=== PATIENT | female | born 1995 | race American Indian/Alaskan Native ===

== ENCOUNTER 2018-03-06 10:15 | Inpatient (IN) | payer SELFPAY ==
[2018-03-06] MEDS ORDERED: MOTRIN PO ONE (11:50)
[2018-03-06] MEDS ORDERED: TYLENOL #3 PO ONE (11:50)
[2018-03-06] MEDS ORDERED: TORADOL IM ONE (11:53)
[2018-03-06] MEDS ORDERED: ZOFRAN ODT PO ONE (11:54)
--- NOTE | 2018-03-06 12:20 | Emergency Department Report ---
ED Female HPI - General Chief complaint: Urogenital-Female Stated complaint: BAD MENTSTRAL CRAMPS Time Seen by Provider: 03/06/18 11:28 Source: patient, EMS Mode of arrival: Ambulatory Limitations: No Limitations - History of Present Illness Initial comments: This is a 22-year-old female nontoxic, well nourished in appearance, no acute signs of distress presents to the ED with c/o of nausea and pelvic pain x2 days. Patient stated that she has a history of abnormal heavy menstrual cycles with severe pain. Patient stated that she takes medication from her PCP but is not relieved the pain. Patient denies any vomiting. Patient stated that she becomes nauseated due to the pain. Patient describes pelvic pain as cramping and aching with level of 3/10 diffuse. Patient denies chest pain, short of breath, fever, chills, headache, stiff neck, numbness or tingling. Patient denies any diarrhea or constipation. Patient denies any vaginal discharge. Patient denies any recent travels. Patient denies any allergies or significant PMH. MD Complaint: vaginal bleeding, pelvic pain -: days(s) (2) Radiation: non-radiating Severity: mild Severity scale (0 -10): 8 Quality: cramping Consistency: constant Improves with: none Worsens with: none Are you Now?: No Last Menstrual Period: 03/06/18 EDC: 12/11/18 Associated Symptoms: vaginal bleeding. denies: vaginal discharge, abdominal pain, nausea/vomiting, fever/chills, headaches, loss of appetite, dysuria, hematuria, rash, seizure, shortness of breath, syncope, weakness - Related Data Allergies Allergy/AdvReac Type Severity Reaction Status Date / Time No Known Allergies Allergy Unverified 03/06/18 10:25 ED Review of Systems ROS: Stated complaint: BAD MENTSTRAL CRAMPS Other details as noted in HPI Constitutional: denies: chills, fever Eyes: denies: eye pain, eye discharge, vision change ENT: denies: ear pain, throat pain Respiratory: denies: cough, shortness of breath, wheezing Cardiovascular: denies: chest pain, palpitations Endocrine: no symptoms reported Gastrointestinal: denies: abdominal pain, nausea, diarrhea Genitourinary: abnormal menses. denies: urgency, dysuria, discharge Musculoskeletal: denies: back pain, joint swelling, arthralgia Skin: denies: rash, lesions Neurological: denies: headache, weakness, paresthesias Psychiatric: denies: anxiety, depression Hematological/Lymphatic: denies: easy bleeding, easy bruising ED Past Medical Hx - Past Medical History Previous Medical History?: Yes Additional medical history: Painful menstrual cramps - Surgical History Past Surgical History?: Yes Hx Appendectomy: Yes - Social History Smoking Status: Current Every Day Smoker Substance Use Type: Marijuana ED Physical Exam - General Limitations: No Limitations General appearance: alert, in no apparent distress - Head Head exam: Present: atraumatic, normocephalic - Eye Eye exam: Present: normal appearance Pupils: Present: normal accommodation - ENT ENT exam: Present: normal exam, mucous membranes moist - Neck Neck exam: Present: normal inspection, full ROM. Absent: tenderness, meningismus - Respiratory Respiratory exam: Present: normal lung sounds bilaterally. Absent: respiratory distress, wheezes, rales, rhonchi, stridor, chest wall tenderness, accessory muscle use, decreased breath sounds, prolonged expiratory - Cardiovascular Cardiovascular Exam: Present: regular rate, normal rhythm, normal heart sounds. Absent: bradycardia, tachycardia, irregular rhythm, systolic murmur, diastolic murmur, rubs, gallop - GI/Abdominal GI/Abdominal exam: Present: soft, tenderness (pelvic bilateral), normal bowel sounds. Absent: distended, guarding, rebound, rigid, diminished bowel sounds - Expanded GI/Abdominal Exam Expanded GI/Abdominal exam: Absent: psoas sign, obturator sign, heel tap sign, Combs's sign, Rovsing's sign, tenderness at Mcburney's Point, ascites - Rectal Rectal exam: Present: deferred - External exam: Present: normal external exam, other (chaperoned Hemalatha present during exam). Absent: erythema, swelling, lesions, lacerations, ecchymosis, bleeding Speculum exam: Present: normal speculum exam, vaginal bleeding, other ( chaperoned Hemalatha present during exam). Absent: erythema, vaginal discharge, cervical discharge, foreign body, tissue, laceration Bi-manual exam: Present: cervical motion tendernes, adnexal tenderness, other ( chaperoned Hemalatha present during exam). Absent: adnexal mass, uterine enlargement , uterine tenderness - Extremities Exam Extremities exam: Present: normal inspection, full ROM, normal capillary refill. Absent: tenderness - Back Exam Back exam: Present: normal inspection, full ROM. Absent: tenderness, CVA tenderness (R), CVA tenderness (L), muscle spasm, paraspinal tenderness, vertebral tenderness, rash noted - Neurological Exam Neurological exam: Present: alert, oriented X3, normal gait - Psychiatric Psychiatric exam: Present: normal affect, normal mood - Skin Skin exam: Present: warm, dry, intact, normal color. Absent: rash ED Course Vital Signs 03/06/18 03/06/18 03/06/18 10:25 12:05 16:00 Temperature 97.6 F 98.4 F Pulse Rate 76 75 Respiratory 18 18 16 Rate Blood Pressure 144/55 Blood Pressure 107/63 [Left] O2 Sat by Pulse 100 99 Oximetry - Reevaluation(s) Reevaluation #1: 03/06/18 12:47 Patient is speaking in full sentences with no signs of distress noted. - Consultations Consultation #1: 03/06/18 16:14 Patient has been consulted with Doni Kaba about patient history, physical exam , and labs/US report and examined patient and stated due more labs, give patient gentamicin and clindamycin and have [facility] consult. Consultation #2: 03/06/18 17:41 Patient has been consulted with Dillon Kyle (my-mother's helper) about patient history, physical exam, and labs/US report and stated to admit patient to mother baby unit and she will consult. ED Medical Decision Making - Lab Data Result diagrams: 03/06/18 13:03 03/06/18 13:03 - Medical Decision Making This is a 22-year-old female that presents with dysmenorrhea with possible PID/ tubal ovarian abscess. Patient is stable and was examined by me. Lab obtained with elevated WBCs. Wet prep obtaiend. G/C pending. Lactic acid 1.9. Blood cultures obtained. Patient received 1 L of normal saline, gentamicin and clindamycin IV. Patient was discussed with Dr. Rodríguez and agrees to the ED plan of care. Patient is admitted to [facility]. At time of admission, the patient does not seem toxic or ill in appearance. No acute signs of distress noted. Patient agrees to admission treatment plan of care. No further questions noted by the patient. Critical care attestation.: If time is entered above; I have spent that time in minutes in the direct care of this critically ill patient, excluding procedure time. ED Disposition Clinical Impression: Pelvic inflammatory disease, Dysmenorrhea, Adnexal tenderness Disposition: OP ADMIT IP TO THIS HOSP Is pt being admited?: Yes Condition: Stable Referrals: PRIMARY CARE, [Primary Care Provider] - 3-5 Days
[2018-03-06 12:40] LABS: Bacteria,Urine 1+ /HPF (Negative); Bilirubin,Urine NEG (Negative); Blood,Urine LG (Negative); Color,Urine Yellow (Yellow); Mucus,Urine FEW /HPF; Urobilinogen,Urine < 2.0 mg/dL (<2.0)
[2018-03-06 13:20] LABS: Hematocrit 39.5 % (30.3-42.9); Hemoglobin 12.9 gm/dl (10.1-14.3); Mean Corpuscular HGB Conc 33 % (30-34); Mean Corpuscular Hemoglobin 32 pg (28-32); Mean Corpuscular Volume 97 fl (79-97); Platelet Count 183 K/mm3 (140-440); Red Blood Count 4.06 M/mm3 (3.65-5.03)
[2018-03-06 13:38] LABS: BUN/Creatinine Ratio 12; Blood Urea Nitrogen 7 mg/dL (7-17); Calcium 9.1 mg/dL (8.4-10.2); Hemolysis Index 42
[2018-03-06 14:01] LABS: Basophils % (Manual) 0 % (0.0-1.8); Eosinophils % (Manual) 0 % (0.0-4.3); Total Cells Counted 100
[2018-03-06 14:02] LABS: Anisocytosis 1+; Platelet Estimate Cons
--- NOTE | 2018-03-06 15:59 | Ultrasound Report ---
ULTRASOUND PELVIS COMPLETE - TRANSABDOMINAL AND TRANSVAGINAL: INDICATION: Pelvic cramping with vaginal bleeding. COMPARISON: None similar at this institution. FINDINGS: Transabdominal and transvaginal pelvic sonography performed in this patient with LMP of 03/05/2018 demonstrates a 6.6 x 3.8 x 4.6 cm anteverted uterus. Echogenic endometrial stripe thickness 3 mm toward the fundus, endovaginal image 8. Closed cervix. Small pelvic free fluid. A tubular fluid-filled 5.3 x 2.2 x 2.7 cm structure with diffuse low-level intrinsic echoes noted in the right adnexa as on endovaginal image 32, amongst others. An adjacent 3.5 x 2.2 x 2.2 cm right ovary appears physiologic with a 1.4 cm intrinsic complex area/possible ruptured follicle as on endovaginal images 20-22. Unremarkable 2.9 x 1.9 x 3.2 cm left ovary as well. CONCLUSION: Complex right adnexal tubular fluid collection/possible hydrosalpinx. PID/tubo-ovarian abscess may also be correlated for clinically in an appropriate setting. Otherwise unremarkable exam. Thank you for the opportunity to participate in this patient's care.
[2018-03-06] MEDS ORDERED: ZITHROMAX PO ONE (16:07)
[2018-03-06] MEDS ORDERED: NACL 0.9% 1000 ML 1,000 ML IV ONE (16:10)
[2018-03-06] MEDS ORDERED: CLEOCIN 900 MG/50 mL 900 MG/50 ML BAG IV ONE (16:12)
[2018-03-06] MEDS ORDERED: GARAMYCIN/NS 120MG/100ML 120 MG/100 ML BAG IV ONE (16:13)
[2018-03-06] MEDS ORDERED: ROCEPHIN/NS 1 GM/50 ML 1 GM/50 ML BAG IV ONE (17:30)
--- NOTE | 2018-03-06 17:30 | Ultrasound Report ---
FINAL REPORT EXAM: US TRANSVAGINAL HISTORY: pelvic pain / repeat for ovarian torsion per er TECHNIQUE: Ultrasound transvaginal with pulsed and color Doppler evaluation PRIORS: None. FINDINGS: Uterus demonstrates normal size and echogenicity further described on today's earlier ultrasound The right ovary is 3.84 by 2.23 x 2.48 centimeters. Small follicular cysts are seen within the ovary. At the right adnexa there is a larger more complex appearing fluid collection with thickened quiñonez measuring approximately 5.2 x 2.7 centimeters as noted on the prior ultrasound. On Doppler evaluation of the right ovary there is normal vascular flow and waveform. The left ovary is 2.57 x 1.60 x 2.62 centimeters. There are few small follicular cyst noted. There is normal vascular flow waveform on pulsed and color Doppler evaluation IMPRESSION: Complex fluid collection at the right adnexa as noted on the prior exam. May reflect complex cyst however tubo-ovarian abscess/PID is a consideration No evidence for ovarian torsion at this time.
[2018-03-06] MEDS ORDERED: FLAGYL PO ONE (17:45)
[2018-03-06 18:16] VITALS: BP 104/59
[2018-03-06] MEDS ORDERED: TYLENOL PO PRN (19:39)
[2018-03-06] MEDS ORDERED: MOTRIN PO PRN (19:39)
[2018-03-06] MEDS ORDERED: ZOFRAN IV PRN (19:39)
[2018-03-06] MEDS ORDERED: SODIUM CHLORIDE FLUSH SYRINGE 10 ML IV PRN (19:39)
[2018-03-06] MEDS ORDERED: ALUM-MAG HYDROX-SIMETH 200-200-20MG/5ML PO PRN (19:39)
[2018-03-06] MEDS ORDERED: NORCO 5/325 PO PRN (19:39)
[2018-03-06] MEDS ORDERED: FLAGYL ONE (19:55)
[2018-03-06] MEDS ORDERED: LEVAQUIN 500MG/100ML 500 MG/100 ML BAG IV SCH (20:30)
--- NOTE | 2018-03-06 21:23 | Event Note ---
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 ORDERS WERE PLACED WITH ANTICIPATION OF PT ARRIVING TO THE FLOW AT WHICH POINT MY EVALUATION WOULD HAVE BEEN DONE SHE WAS STABLE AND HAD BEEN EXAMINED BY ER PROVIDER.
[2018-03-07] MEDS ORDERED: FLAGYL 500 MG/100 ML 500 MG/100 ML BAG IV SCH
== END 2018-03-06 20:00 | disposition left against medical advice (07) | DRG 869 ==
LOC: ED 10:15 → OB 17:37
PROVIDERS: ADMIT Obstetrics & Gynecology; ATTEND Obstetrics & Gynecology
DX: A59.9 Trichomoniasis, unspecified (principal); N73.9 Female pelvic inflammatory disease, unspecified; N76.0 Acute vaginitis; N94.6 Dysmenorrhea, unspecified; F17.200 Nicotine dependence, unspecified, uncomplicated; F12.90 Cannabis use, unspecified, uncomplicated; Z90.49 Acquired absence of other specified parts of digestive tract
CPT/HCPCS: 36415; 76830; 76856; 80048; 81001; 82140; 84703; 85007; 85025; 87040; 87086; 87210; 87591; 96365; 96372; J0696; J1580; J1885; J1956; J7030; Q0162

== ENCOUNTER 2020-06-06 03:35 | Emergency (ER) | payer SELFPAY ==
[2020-06-06 04:50] VITALS: BP 112/73
--- NOTE | 2020-06-06 05:16 | Emergency Department Report ---
ED Psych HPI - General Chief Complaint: Psych Stated Complaint: MENTAL HEALTH Time Seen by Provider: 06/06/20 05:05 Source: patient Mode of arrival: Ambulatory - History of Present Illness Initial Comments: Patient is 24 years old female with unknown past medical and psychiatric history. Patient presented to the ER asking for mental health evaluation. Patient with vague and multiple complaints. Patient stated that she hypersexual and she is having abdominal pain and she think that she is . Patient with significant flights of ideas and loose association. Patient denied any auditory or visual hallucination. She also denied any suicidal or homicidal ideation. - Related Data Home Medications Medication Instructions Recorded Confirmed Last Taken No Known Home Medications [No 03/06/18 03/06/18 Unknown Reported Home Medications] Allergies Allergy/AdvReac Type Severity Reaction Status Date / Time No Known Allergies Allergy Unverified 03/06/18 10:25 ED Review of Systems ROS: Stated complaint: MENTAL HEALTH Other details as noted in HPI Comment: All other systems reviewed and negative Constitutional: denies: chills, fever Respiratory: denies: cough, orthopnea, shortness of breath, SOB with exertion, SOB at rest Cardiovascular: denies: chest pain, palpitations Gastrointestinal: denies: abdominal pain, nausea, vomiting, diarrhea, constipation, hematemesis, hematochezia Musculoskeletal: denies: back pain ED Past Medical Hx - Past Medical History Previous Medical History?: Yes Additional medical history: Painful menstrual cramps - Surgical History Past Surgical History?: Yes Hx Appendectomy: Yes - Social History Smoking Status: Current Every Day Smoker Substance Use Type: Marijuana - Medications Home Medications: Home Medications Medication Instructions Recorded Confirmed Last Taken Type No Known Home Medications [No 03/06/18 03/06/18 Unknown History Reported Home Medications] ED Physical Exam - General Limitations: No Limitations General appearance: alert, in no apparent distress - Head Head exam: Present: atraumatic, normocephalic, normal inspection - Eye Eye exam: Present: normal appearance - ENT ENT exam: Present: normal exam, normal orophraynx, mucous membranes moist - Neck Neck exam: Present: normal inspection, full ROM. Absent: tenderness, meningismus - Respiratory Respiratory exam: Present: normal lung sounds bilaterally - Cardiovascular Cardiovascular Exam: Present: regular rate, normal rhythm, normal heart sounds - GI/Abdominal GI/Abdominal exam: Present: soft, normal bowel sounds. Absent: distended, tende rness, guarding, rebound, rigid, organomegaly, mass, bruit, pulsatile mass, hernia - Extremities Exam Extremities exam: Present: normal inspection, full ROM, normal capillary refill. Absent: pedal edema, calf tenderness - Back Exam Back exam: Present: normal inspection, full ROM. Absent: CVA tenderness (R), CVA tenderness (L) - Neurological Exam Neurological exam: Present: alert, oriented X3, CN II-XII intact, reflexes normal - Psychiatric Psychiatric exam: Present: flat affect. Absent: homicidal ideation, suicidal ideation - Skin Skin exam: Present: warm, intact, normal color ED Course Vital Signs 06/06/20 04:36 Temperature 98.5 F Pulse Rate 89 Respiratory 18 Rate Blood Pressure 112/73 O2 Sat by Pulse 100 Oximetry ED Medical Decision Making - Lab Data Result diagrams: 06/06/20 05:17 06/06/20 05:17 Critical care attestation.: If time is entered above; I have spent that time in minutes in the direct care of this critically ill patient, excluding procedure time. ED Disposition Clinical Impression: Mental health problem Disposition: DC-07 LEFT AGAINST MED ADVICE Is pt being admited?: No Condition: Stable Referrals: PRIMARY CARE, [Primary Care Provider] - 3-5 Days Forms: AMA Form
[2020-06-06 05:21] LABS: Bacteria,Urine 1+ /HPF (Negative); Bilirubin,Urine NEG (Negative); Blood,Urine SM (Negative); Color,Urine Yellow (Yellow); Mucus,Urine 3+ /HPF; Protein,Urine <15 mg/dL mg/dL (Negative)
[2020-06-06 05:28] LABS: Amphetamine Screen,Urine PRESUMPTIVE NEGATIVE; Benzodiazepines Screen,Urine PRESUMPTIVE NEGATIVE; Cannabinoid Screen,Urine PRESUMPTIVE POSITIVE; Cocaine Screen,Urine PRESUMPTIVE NEGATIVE; Methadone Screen,Urine PRESUMPTIVE NEGATIVE; Opiate Screen,Urine PRESUMPTIVE NEGATIVE
[2020-06-06 05:52] LABS: Basophils % (Auto) 0.4 % (0.0-1.8); Eosinophils # (Auto) 0.2 K/mm3 (0.0-0.4); Eosinophils % (Auto) 3.2 % (0.0-4.3); Hematocrit 39.6 % (30.3-42.9); Hemoglobin 12.9 gm/dl (10.1-14.3); Lymphocytes # (Auto) 2.7 K/mm3 (1.2-5.4); Lymphocytes % (Auto) 37.7 % (13.4-35.0); Mean Corpuscular HGB Conc 33 % (30-34); Mean Corpuscular Volume 98 fl (79-97); Monocytes # (Auto) 0.5 K/mm3 (0.0-0.8); Monocytes % (Auto) 6.3 % (0.0-7.3); Platelet Count 180 K/mm3 (140-440); Red Blood Count 4.05 M/mm3 (3.65-5.03); Red Cell Distribution Width 14.8 % (13.2-15.2)
[2020-06-06 06:05] LABS: Blood Urea Nitrogen 8 mg/dL (7-17); Hemolysis Index 11
[2020-06-06 06:06] LABS: BUN/Creatinine Ratio 13
== END 2020-06-06 06:45 | disposition left against medical advice (07) ==
LOC: EEVIPCON 03:35 → ED 03:35
DX: F99 Mental disorder, not otherwise specified (principal); Z79.899 Other long term (current) drug therapy
CPT/HCPCS: 36415; 80048; 80307; 80320; 81001; 84703; 85025; G0480

== ENCOUNTER 2021-03-25 20:35 | Emergency (ER) | payer SELFPAY | END 2021-03-25 20:40 | disposition left against medical advice (07) | LOC: ED 20:35 | DX: R10.9 Unspecified abdominal pain (principal); Z53.21 Procedure and treatment not carried out due to patient leaving prior to being seen by health care provider ==